=== PATIENT | female | born 1995 | race Caucasian/White ===

== ENCOUNTER 2017-04-25 17:04 | Emergency (ER) | payer OTHER ==
[~2017-04-25] VITALS: Ht 165.1 cm; Wt 60.9 kg
[~2017-04-25 17:04] MED LIST: CYANOCOBALAM1000 MCG PO; ESCITALOPRAM OX10 MG PO; IBUPROFEN800 MG PO; IMPLANON68 MG SQ; KEFLEX500 MG PO; MOTRIN800 MG PO; PERCOCET 5/31 TABLET PO; PRENATAL TABLE1 EAC3 PO; PROAIR HFA8.5 GM IH; ZOFRAN ODT4 MG PO; ZOFRAN4 MG PO
[2017-04-25] MEDS ORDERED: NAPROSYN500 MG PO (18:28)
[2017-04-25] MEDS ORDERED: ZOFRAN ODT4 MG PO (18:28)
[2017-04-25 19:13] VITALS: BP 133/94
== END 2017-04-25 19:13 | disposition home or self-care (01) ==
LOC: EME 17:04
DX: S80.02XA Contusion of left knee, initial encounter (principal); V43.53XA Car driver injured in collision with pick-up truck in traffic accident, initial encounter; S50.812A Abrasion of left forearm, initial encounter; W22.11XA Striking against or struck by driver side automobile airbag, initial encounter; Y92.410 Unspecified street and highway as the place of occurrence of the external cause; M62.838 Other muscle spasm; M54.2 Cervicalgia; M54.5 Low back pain; J45.909 Unspecified asthma, uncomplicated; Z88.0 Allergy status to penicillin
CPT/HCPCS: 72040; 72100; 73564; 99281; 99284

== ENCOUNTER 2017-09-01 16:34 | Inpatient (IN) | payer OTHER ==
[~2017-09-01] VITALS: Ht 165.1 cm; Wt 57.2 kg
[~2017-09-01 16:34] MED LIST changes: +NAPROSYN500 MG PO
[2017-09-01 17:18] LABS: APPEARANCE SL.HAZY ((CLEAR)); BILIRUBIN NEGATIVE; BLOOD NEGATIVE; COLOR YELLOW ((YELLOW)); GLUCOSE (STRIP) >=500; KETONES 20; LEUKOCYTES SMALL; NITRITE NEGATIVE; PROTEIN (STRIP) 30; SPECIFIC GRAVITY 1.043 (1.000-1.030); UROBILINOGEN 0.2 MG/DL (0.2-1.0)
[2017-09-01 17:25] LABS: BACTERIA RARE /HPF; EPITHELIAL CELLS 1+ /HPF; MUCUS TRACE /LPF; UCUL ADDED? YES; WHITE BLOOD CELLS 15-20 /HPF (0-5)
[2017-09-01 17:54] LABS: QUANTITATIVE HCG < 4.0 MIU/ML
[2017-09-01 18:13] LABS: HEMATOCRIT 42.6 % (36.0-46.0); MCH 28.8 PG (29.0-34.0); MCHC 35.2 G/DL (30.0-36.0); MCV 81.9 FL (83-99); PLATELET COUNT 241 K/uL (156-360); RBC DIS.WIDTH-CV 11.9 % (11.8-14.6); RBC DIS.WIDTH-SD 35.4 % (39-53); WHITE BLOOD COUNT 8.6 K/uL (4.1-10.2)
[2017-09-01 18:14] LABS: ALBUMIN 4.7 g/dL (3.2-4.8); CHLORIDE 100 mEq/L (99-109); POTASSIUM 4.2 mEq/L (3.7-5.4); SODIUM 135 mEq/L (136-147)
[2017-09-01 18:17] LABS: TOTAL PROTEIN 7.5 g/dL (6.4-8.3)
[2017-09-01 18:19] LABS: TOTAL BILIRUBIN 1.8 mg/dL (0.0-1.0)
[2017-09-01 18:20] LABS: ALKALINE PHOSPHATASE 60 IU/L (3-129); GFR ESTIMATE (CALCULATED) > 59 mL/min/
[2017-09-01 18:21] LABS: UREA NITROGEN (BUN) 9 mg/dL (9-23)
[2017-09-01 18:22] LABS: AST (GOT) 20 IU/L (2-34)
[2017-09-01 18:23] LABS: ALT (GPT) 19 IU/L (3-49)
[2017-09-01 18:25] LABS: GLUCOSE 482 mg/dL (70-99)
[2017-09-01] MEDS ORDERED: PROAIR HFA8.5 GM IH (18:44)
[2017-09-01 18:54] LABS: CARBON DIOXIDE (BICARBONATE) 27.9 MEQ/L (20-31)
[2017-09-01 20:26] VITALS: BP 157/80
[2017-09-02 03:30] VITALS: BP 109/54
[2017-09-02 06:45] LABS: CHLORIDE 109 MEQ/L (99-109); CREATININE 0.7 MG/DL (0.6-1.3); GFR ESTIMATE (CALCULATED) > 59 mL/min/; POTASSIUM 3.8 MEQ/L (3.7-5.4); SODIUM 141 MEQ/L (136-147); UREA NITROGEN (BUN) 8 mg/dL (9-23)
[2017-09-02 06:47] LABS: GLUCOSE 187 mg/dL (70-99)
[2017-09-02 07:28] VITALS: BP 114/65
[2017-09-02 10:38] LABS: HEMOGLOBIN A1c (GLYCOHEMOGLOB) 11.2 % (Below 5.7)
[2017-09-02 11:16] VITALS: BP 115/72
[2017-09-02 20:00] VITALS: BP 141/67
[2017-09-02 23:17] VITALS: BP 119/70
[2017-09-03 03:59] VITALS: BP 124/67
[2017-09-03 06:07] LABS: BASOPHIL (%) 0.4 % (0-1); EOSINOPHIL (%) 2.9 % (0-5); EOSINOPHIL COUNT 0.2 K/uL (0-0.3); HEMATOCRIT 39.2 % (36.0-46.0); HEMOGLOBIN 13.5 G/DL (11.9-15.5); IMMATURE GRANULOCYTE (%) 0.3 % (0.0-0.7); LYMPHOCYTE (%) 42.1 % (15-42); MCH 28.5 PG (29.0-34.0); MCHC 34.4 G/DL (30.0-36.0); MCV 82.9 FL (83-99); MONOCYTE (%) 7.6 % (3-12); MONOCYTE COUNT 0.6 K/uL (0-0.8); NEUTROPHIL (%) 46.7 % (45-76); NEUTROPHIL COUNT 3.4 K/uL (1.8-6.4); PLATELET COUNT 220 K/uL (156-360); RBC DIS.WIDTH-CV 12.1 % (11.8-14.6); RBC DIS.WIDTH-SD 36.8 % (39-53); RED BLOOD COUNT 4.73 M/uL (3.80-5.20); WHITE BLOOD COUNT 7.2 K/uL (4.1-10.2)
[2017-09-03 06:31] LABS: CHLORIDE 108 MEQ/L (99-109); CREATININE 0.7 MG/DL (0.6-1.3); GFR ESTIMATE (CALCULATED) > 59 mL/min/; GLUCOSE 165 mg/dL (70-99); POTASSIUM 3.5 MEQ/L (3.7-5.4); SODIUM 140 MEQ/L (136-147); UREA NITROGEN (BUN) 8 mg/dL (9-23)
[2017-09-03 07:33] VITALS: BP 116/61
[2017-09-03] MEDS ORDERED: METFORMIN HCL500 MG PO (07:54)
[2017-09-03] MEDS ORDERED: LEVEMIR FL100 UNIT/1 SC (07:55)
[2017-09-03] MEDS ORDERED: BACTRIM,SEPT1 TABLET PO (10:11)
[2017-09-03] MEDS ORDERED: ONE TOUCH ULTR1 EAC4 MC (10:12)
[2017-09-03] MEDS ORDERED: ONE TOUCH ULTR1 EACH MC (10:12)
[2017-09-03] MEDS ORDERED: 1ST TIER UNILE1 EAC1 MC (10:13)
[2017-09-03 11:15] VITALS: BP 118/70
== END 2017-09-03 13:34 | disposition home or self-care (01) | DRG 638 ==
LOC: EME 16:34 → EDOF 19:34 → 2EAST 19:34 → ENRESERV 19:46 → 2EAST 20:22
PROVIDERS: Hospitalist; Internal Medicine; Physician Assistant; Physician Assistant Medical
DX: E11.9 Type 2 diabetes mellitus without complications (principal); N39.0 Urinary tract infection, site not specified; J45.909 Unspecified asthma, uncomplicated; Z86.32 Personal history of gestational diabetes; Z87.440 Personal history of urinary (tract) infections; Z87.442 Personal history of urinary calculi; Z83.3 Family history of diabetes mellitus
CPT/HCPCS: 80048; 80053; 81003; 82010; 82803; 82948; 83036; 84702; 85025; 85027; 87086; 99281; 99285; J1815; J2405; J7030

== ENCOUNTER 2017-09-07 13:07 | Emergency (ER) | payer OTHER ==
[~2017-09-07] VITALS: Ht 162.6 cm; Wt 57.2 kg
[~2017-09-07 13:07] MED LIST changes: +1ST TIER UNILE1 EAC1 MC; +BACTRIM,SEPT1 TABLET PO; +LEVEMIR FL100 UNIT/1 SC; +METFORMIN HCL500 MG PO; +ONE TOUCH ULTR1 EAC4 MC; +ONE TOUCH ULTR1 EACH MC
[2017-09-07 14:01] LABS: APPEARANCE SL.HAZY ((CLEAR)); BILIRUBIN NEGATIVE; BLOOD NEGATIVE; COLOR YELLOW ((YELLOW)); GLUCOSE (STRIP) >=500; KETONES 80; LEUKOCYTES TRACE; NITRITE NEGATIVE; PROTEIN (STRIP) 100; SPECIFIC GRAVITY 1.028 (1.000-1.030); UROBILINOGEN 0.2 MG/DL (0.2-1.0)
[2017-09-07 14:02] LABS: HEMATOCRIT 44.8 % (36.0-46.0); MCH 29.1 PG (29.0-34.0); MCHC 34.8 G/DL (30.0-36.0); MCV 83.6 FL (83-99); PLATELET COUNT 259 K/uL (156-360); RBC DIS.WIDTH-CV 12.5 % (11.8-14.6); RBC DIS.WIDTH-SD 37.6 % (39-53); RED BLOOD COUNT 5.36 M/uL (3.80-5.20); WHITE BLOOD COUNT 11.8 K/uL (4.1-10.2)
[2017-09-07 14:03] LABS: HEMOGLOBIN 15.6 G/DL (11.9-15.5)
[2017-09-07 14:04] LABS: ALBUMIN 5.1 g/dL (3.2-4.8)
[2017-09-07 14:05] LABS: CHLORIDE 103 mEq/L (99-109); SODIUM 139 mEq/L (136-147)
[2017-09-07 14:07] LABS: GLUCOSE 213 mg/dL (70-99); TOTAL PROTEIN 7.9 g/dL (6.4-8.3)
[2017-09-07 14:08] LABS: BACTERIA RARE /HPF; EPITHELIAL CELLS 2+ /HPF; MUCUS TRACE /LPF; RED BLOOD CELLS 0-5 /HPF (0-5); UCUL ADDED? YES
[2017-09-07 14:09] LABS: POTASSIUM 4.6 mEq/L (3.7-5.4); TOTAL BILIRUBIN 1.8 mg/dL (0.0-1.0)
[2017-09-07 14:10] LABS: ALKALINE PHOSPHATASE 50 IU/L (3-129)
[2017-09-07 14:11] LABS: CREATININE 0.9 mg/dL (0.6-1.3); GFR ESTIMATE (CALCULATED) > 59 mL/min/
[2017-09-07 14:12] LABS: AST (GOT) 20 IU/L (2-34)
[2017-09-07 14:13] LABS: UREA NITROGEN (BUN) 22 mg/dL (9-23)
[2017-09-07 14:14] LABS: ALT (GPT) 16 IU/L (3-49)
[2017-09-07 14:20] LABS: QUANTITATIVE HCG < 4.0 MIU/ML
[2017-09-07] MEDS ORDERED: ZOFRAN ODT4 MG PO (16:22)
[2017-09-07 16:33] VITALS: BP 122/76
== END 2017-09-07 16:44 | disposition home or self-care (01) ==
LOC: EME 13:07
PROVIDERS: Physician Assistant
DX: R11.10 Vomiting, unspecified (principal); E11.65 Type 2 diabetes mellitus with hyperglycemia; Z83.3 Family history of diabetes mellitus; J45.909 Unspecified asthma, uncomplicated; F32.9 Major depressive disorder, single episode, unspecified; F41.9 Anxiety disorder, unspecified; Z88.0 Allergy status to penicillin
CPT/HCPCS: 74177; 80053; 81003; 82010; 82948; 84702; 85027; 87086; 99281; 99285; J2405; J7030

== ENCOUNTER 2017-11-18 11:27 | Inpatient (IN) | payer OTHER ==
[~2017-11-18] VITALS: Ht 165.1 cm; Wt 56.1 kg
[2017-11-18 13:35] LABS: APPEARANCE CLEAR ((CLEAR)); BILIRUBIN NEGATIVE; BLOOD NEGATIVE; COLOR STRAW ((YELLOW)); GLUCOSE (STRIP) >=500; KETONES 80; LEUKOCYTES NEGATIVE; NITRITE NEGATIVE; PROTEIN (STRIP) 30; SPECIFIC GRAVITY 1.032 (1.000-1.030); UROBILINOGEN 0.2 MG/DL (0.2-1.0)
[2017-11-18 13:38] LABS: BASOPHIL (%) 0.6 % (0-1); BASOPHIL COUNT 0.1 K/uL (0-0.1); EOSINOPHIL (%) 0.4 % (0-5); HEMATOCRIT 43.3 % (36.0-46.0); HEMOGLOBIN 15.1 G/DL (11.9-15.5); LYMPHOCYTE (%) 19.5 % (15-42); MCH 28.6 PG (29.0-34.0); MCHC 34.9 G/DL (30.0-36.0); MONOCYTE (%) 4.3 % (3-12); MONOCYTE COUNT 0.4 K/uL (0-0.8); NEUTROPHIL (%) 74.2 % (45-76); NEUTROPHIL COUNT 7.6 K/uL (1.8-6.4); PLATELET COUNT 259 K/uL (156-360); RBC DIS.WIDTH-CV 12.2 % (11.8-14.6); RBC DIS.WIDTH-SD 36.5 % (39-53); RED BLOOD COUNT 5.28 M/uL (3.80-5.20); WHITE BLOOD COUNT 10.3 K/uL (4.1-10.2)
[2017-11-18 13:41] LABS: CARBON DIOXIDE (BICARBONATE) 15.2 MEQ/L (20-31)
[2017-11-18 13:59] LABS: CHLORIDE 100 MEQ/L (99-109); POTASSIUM 4.3 MEQ/L (3.7-5.4); SODIUM 134 MEQ/L (136-147)
[2017-11-18 14:16] LABS: CREATININE 0.8 MG/DL (0.6-1.3); GFR ESTIMATE (CALCULATED) > 59 mL/min/; GLUCOSE 486 mg/dL (70-99); UREA NITROGEN (BUN) 15 mg/dL (9-23)
[2017-11-18 14:49] LABS: QUANTITATIVE HCG < 4.0 MIU/ML
[2017-11-18] MEDS ORDERED: LEVEMIR100 UNIT/2 SC (15:28)
[2017-11-18] MEDS ORDERED: ZOFRAN ODT4 MG PO (15:29)
[2017-11-18] MEDS ORDERED: METFORMIN HCL500 MG PO (15:30)
[2017-11-18] MEDS ORDERED: NEXPLANON68 MG SC (15:32)
[2017-11-18 16:58] LABS: CHLORIDE 106 MEQ/L (99-109); CREATININE 0.6 MG/DL (0.6-1.3); GFR ESTIMATE (CALCULATED) > 59 mL/min/; GLUCOSE 301 mg/dL (70-99); PHOSPHORUS 2.5 mg/dL (2.5-4.9); POTASSIUM 4.2 MEQ/L (3.7-5.4); SODIUM 138 MEQ/L (136-147); UREA NITROGEN (BUN) 11 mg/dL (9-23)
[2017-11-18 17:30] VITALS: BP 102/66
[2017-11-18 19:01] VITALS: BP 111/75
[2017-11-18 20:01] VITALS: BP 112/71
[2017-11-18 20:04] LABS: CHLORIDE 110 MEQ/L (99-109); CREATININE 0.7 MG/DL (0.6-1.3); GFR ESTIMATE (CALCULATED) > 59 mL/min/; GLUCOSE 281 mg/dL (70-99); POTASSIUM 3.6 MEQ/L (3.7-5.4); SODIUM 138 MEQ/L (136-147); UREA NITROGEN (BUN) 10 mg/dL (9-23)
[2017-11-18 20:07] LABS: PHOSPHORUS 1.2 mg/dL (2.5-4.9)
[2017-11-18 21:01] VITALS: BP 121/75
[2017-11-18 22:05] VITALS: BP 124/85
[2017-11-18 23:01] VITALS: BP 130/85
[2017-11-19] VITALS (24 sets, daily range): BP systolic 105–139; BP diastolic 67–94
[2017-11-19 01:04] LABS: CHLORIDE 111 mEq/L (99-109); POTASSIUM 3.3 mEq/L (3.7-5.4)
[2017-11-19 01:05] LABS: SODIUM 138 mEq/L (136-147)
[2017-11-19 01:06] LABS: GLUCOSE 207 mg/dL (70-99)
[2017-11-19 01:10] LABS: CREATININE 0.8 mg/dL (0.6-1.3); GFR ESTIMATE (CALCULATED) > 59 mL/min/; PHOSPHORUS 1.2 mg/dL (2.5-4.9)
[2017-11-19 01:11] LABS: UREA NITROGEN (BUN) 9 mg/dL (9-23)
[2017-11-19 05:35] LABS: CHLORIDE 114 mEq/L (99-109); POTASSIUM 3.2 mEq/L (3.7-5.4); SODIUM 141 mEq/L (136-147)
[2017-11-19 05:36] LABS: GLUCOSE 127 mg/dL (70-99)
[2017-11-19 05:40] LABS: CREATININE 0.7 mg/dL (0.6-1.3); GFR ESTIMATE (CALCULATED) > 59 mL/min/
[2017-11-19 05:41] LABS: UREA NITROGEN (BUN) 9 mg/dL (9-23)
[2017-11-19 05:43] LABS: PHOSPHORUS 2.3 mg/dL (2.5-4.9)
[2017-11-19 08:37] LABS: CHLORIDE 110 MEQ/L (99-109); CREATININE 0.5 MG/DL (0.6-1.3); GFR ESTIMATE (CALCULATED) > 59 mL/min/; GLUCOSE 160 mg/dL (70-99); SODIUM 138 MEQ/L (136-147); UREA NITROGEN (BUN) 9 mg/dL (9-23)
[2017-11-19 09:03] LABS: PHOSPHORUS 2.4 mg/dL (2.5-4.9)
[2017-11-19 09:35] LABS: HEMOGLOBIN A1c (GLYCOHEMOGLOB) 14.7 % (Below 5.7)
[2017-11-19 13:11] LABS: CHLORIDE 108 MEQ/L (99-109); CREATININE 0.5 MG/DL (0.6-1.3); GFR ESTIMATE (CALCULATED) > 59 mL/min/; GLUCOSE 195 mg/dL (70-99); PHOSPHORUS 1.6 mg/dL (2.5-4.9); POTASSIUM 3.3 MEQ/L (3.7-5.4); SODIUM 137 MEQ/L (136-147); UREA NITROGEN (BUN) 8 mg/dL (9-23)
[2017-11-19 13:17] LABS: MAGNESIUM 1.7 mg/dl (1.3-2.7)
[2017-11-20] VITALS (9 sets, daily range): BP systolic 116–128; BP diastolic 71–90
[2017-11-20 10:43] LABS: CHLORIDE 105 MEQ/L (99-109); CREATININE 0.6 MG/DL (0.6-1.3); GFR ESTIMATE (CALCULATED) > 59 mL/min/; GLUCOSE 223 mg/dL (70-99); POTASSIUM 3.9 MEQ/L (3.7-5.4); SODIUM 140 MEQ/L (136-147); UREA NITROGEN (BUN) 6 mg/dL (9-23)
[2017-11-21 06:36] LABS: HEMATOCRIT 41.1 % (36.0-46.0); MCH 28.2 PG (29.0-34.0); MCHC 34.1 G/DL (30.0-36.0); MCV 82.7 FL (83-99); PLATELET COUNT 257 K/uL (156-360); RBC DIS.WIDTH-SD 38.6 % (39-53); RED BLOOD COUNT 4.97 M/uL (3.80-5.20); WHITE BLOOD COUNT 6.2 K/uL (4.1-10.2)
[2017-11-21 07:00] LABS: CHLORIDE 103 MEQ/L (99-109); CREATININE 0.7 MG/DL (0.6-1.3); GFR ESTIMATE (CALCULATED) > 59 mL/min/; GLUCOSE 268 mg/dL (70-99); POTASSIUM 3.7 MEQ/L (3.7-5.4); SODIUM 140 MEQ/L (136-147); UREA NITROGEN (BUN) 11 mg/dL (9-23)
[2017-11-21 07:53] VITALS: BP 122/71
[2017-11-21 12:38] VITALS: BP 198/98
[2017-11-21 16:20] VITALS: BP 114/74
[2017-11-22] VITALS: BP 112/75
[2017-11-22 07:34] VITALS: BP 117/71
[2017-11-22] MEDS ORDERED: BASAGLAR K100 UNIT/1 SC (09:32)
[2017-11-22] MEDS ORDERED: HUMALOG100 UNIT/1 SC (11:38)
== END 2017-11-22 14:48 | disposition home or self-care (01) | DRG 639 ==
LOC: EME 11:27 → CANRESERV 15:12 → ENRESERV 15:12 → EDOF 15:12 → 4WEST 15:12 → ENRESERV 15:39 → 4WEST 17:18 → ENRESERV 11-20 11:16 → 5EAST 11-20 14:16 → ENPENDDIS 11-22 → 5EAST 11-22 14:48
PROVIDERS: Emergency Medicine; Hospitalist; Internal Medicine Critical Care Medicine
DX: E10.10 Type 1 diabetes mellitus with ketoacidosis without coma (principal); E83.39 Other disorders of phosphorus metabolism; E87.6 Hypokalemia; J45.909 Unspecified asthma, uncomplicated; Z91.19 Patient's noncompliance with other medical treatment and regimen; Z79.4 Long term (current) use of insulin; Z83.3 Family history of diabetes mellitus; Z87.442 Personal history of urinary calculi
CPT/HCPCS: 80048; 80048 91; 81003; 82010; 82803; 82948; 83036; 83735; 84100; 84702; 85025; 85027; 87641; 99281; 99285; J1815; J2405; J7030; J7040; J7050; Q0169